=== PATIENT | female | born 1930 | race Caucasian/White ===

== ENCOUNTER → 2016-03-11 | Outpatient (CLI) | payer MEDICARE ==
[2016-03-11 11:45] LABS: Blood Urea Nitrogen 17 mg/dL (7-17); Non-African American GFR(MDRD) >60 (>60 ml/min/1.73 sqM)
--- NOTE | 2016-03-11 12:47 | CT ---
EXAMINATION TYPE: CT urogram wo/w con DATE OF EXAM: 03/11/2016 12:27 PM COMPARISON: 09/21/2011 HISTORY: 85-year-old female with frequent UTIs, Possible renal stone CT DLP: 850.6 mGycm Automated exposure control for dose reduction was used. TECHNIQUE: Contiguous axial scanning of the abdomen and pelvis without and with IV Contrast, patient injected with 100 ml mL of Omnipaque 300. Delayed images through the kidneys and long delays through the kidneys and bladder were obtained. Coronal/sagittal reconstructions. 3-D reconstructions generate d on a dedicated independent workstation. FINDINGS: Heart is normal size without pericardial effusion. Mitral annular calcifications are noted. Some stra ndy atelectasis or scarring at the left base and right middle lobe. No pleural effusion. No focal liver lesion. No biliary ductal dilatation. Portal venous system is patent Gallbladder, adrenal glands, spleen, and mildly atrophic pancreas show no gross abnormality. There is moderate atherosclerotic calcification throughout the abdominal aorta without aneurysm. Scattered nonenlarged mesenteric lymph nodes are present. No mesenteric or retroperitoneal lymphadeno mariusz. There is moderate overall stool burden and sigmoid diverticulosis but no pericolonic inflammatory alisha nge. Prominent fluid-filled small bowel loops throughout the mid and lower abdomen and possible encrustati on of the colon. There is known nephrolithiasis. Tiny subcentimeter hypodensity lateral lower pole right kidney is unc hanged and too small for accurate CT characterization, likely a cyst. There is symmetric uptake and excretion of contrast by both kidneys without any suspicious renal lesi on.. The distal third right ureter is nonopacified and not evaluated. Left ureter appears satisfactory. No suspicious filling defects seen within the collecting systems on either side. Tiny fatty umbilical hernia No suspicious filling defect along the dependent portion of the bladder which is opacified with layer ing contrast. Uterus surgically absent. Some bulging convexity of the levator ani musculature suggests pelvic floor relaxation. No abnormal fluid collection in the pelvis. Bones: Multilevel disc/endplate degenerative change within the lumbar spine with at least moderate sp inal canal stenoses that is at L2-L3. No osseous destructive process. IMPRESSION: 1. NO NEPHROLITHIASIS, SUSPICIOUS RENAL LESION, OR OBSTRUCTIVE UROPATHY. 2. NONOPACIFICATION OF THE DISTAL THIRD SEGMENT OF THE RIGHT URETER PRECLUDING ITS EVALUATION. OTHERW ISE, NO SPECIFIC ABNORMALITY OF THE COLLECTING SYSTEMS OR REMAINDER OF THE URETERS. 3. APPARENT ENCRUSTATION OF THE COLON AND PROMINENT FLUID-FILLED SMALL BOWEL LOOPS THROUGHOUT. QUESTI ONABLE CLINICAL SIGNIFICANCE. CORRELATE FOR THE POSSIBILITY OF HYPERSECRETION AND COLONIC WALL FAT CO ATING FROM AN UNDERLYING MALABSORPTIVE DISEASE. 4. SIGMOID DIVERTICULOSIS AND MILD PELVIC FLOOR RELAXATION.
== END | disposition home or self-care (01) ==
LOC: RADCTMAIN 11:13
PROVIDERS: ATTEND Urology
DX: K57.30 Diverticulosis of large intestine without perforation or abscess without bleeding (principal); N20.0 Calculus of kidney
CPT/HCPCS: 82565; 84520; 74178; 36415; 74400; Q9967

== ENCOUNTER → 2017-02-01 | Outpatient (CLI) | payer MEDICARE ==
--- NOTE | 2017-02-01 21:43 | US ---
EXAMINATION TYPE: US kidneys/renal and bladder DATE OF EXAM: 02/01/2017 COMPARISON: CT urogram March 11, 2016. Renal ultrasound February 04, 2016. CLINICAL HISTORY: N39.0 UTI. UTI this year and last year, h/o renal stones EXAM MEASUREMENTS: Right Kidney: 8.4 x 4.2 x 5.0 cm Left Kidney: 11.3 x 3.5 x 5.2 cm any nephrolithiasis seen previously was too small to see by ultrasound Right Kidney: smaller in size Left Kidney: wnl Bladder: wnl Bilateral Jets seen: only right There is no evidence for hydronephrosis at this point in time. No nephrolithiasis is seen. No raffaele s are identified. The urinary bladder is anechoic. Bilateral ureteral jets are not seen. IMPRESSION: No hydronephrosis is evident bilaterally. Asymmetric diminished size to right kidney is felt technica l as renal sizes are fairly symmetric and within normal limits on comparison CT.
== END | disposition home or self-care (01) ==
LOC: RADUSWWP 15:42
PROVIDERS: ATTEND Urology
DX: N39.0 Urinary tract infection, site not specified (principal)
CPT/HCPCS: 76770

== ENCOUNTER → 2017-03-31 | Outpatient (CLI) | payer MEDICARE ==
--- NOTE | 2017-04-01 10:52 | MM ---
Reason for exam: screening (asymptomatic). Last mammogram was performed 1 year and 2 months ago. History: Patient is postmenopausal. Benign excisional biopsy of the right breast, 1973. Took estrogen for 10 years beginning at age 50. Took progesterone for 4 years beginning at age 50. Physical Findings: A clinical breast exam by your physician is recommended on an annual basis and results should be correlated with mammographic findings. MG 3D Screening Mammo W/Cad Bilateral CC and MLO view(s) were taken. Prior study comparison: February 04, 2016, bilateral MG 3d screening mammo w/cad. February 11, 2015, right breast MG 3d work up w/cad RT. The breast tissue is heterogeneously dense. This may lower the sensitivity of mammography. Finding: There are typically benign vascular, round calcifications. There is no discrete abnormality. ASSESSMENT: Benign, BI-RAD 2 RECOMMENDATION: Routine screening mammogram of both breasts in 1 year.
== END | disposition home or self-care (01) ==
LOC: RADMAMWWP 13:02
PROVIDERS: ATTEND Obstetrics & Gynecology
DX: Z12.31 Encounter for screening mammogram for malignant neoplasm of breast (principal)
CPT/HCPCS: 77063; 77067

== ENCOUNTER → 2018-04-20 | Outpatient (CLI) | payer MEDICARE ==
--- NOTE | 2018-04-24 08:08 | MM ---
Reason for exam: screening (asymptomatic). Last mammogram was performed 1 year and 1 month ago. History: Patient is postmenopausal. Benign excisional biopsy of the right breast, 1973. Took estrogen for 10 years beginning at age 50. Took progesterone for 4 years beginning at age 50. Physical Findings: A clinical breast exam by your physician is recommended on an annual basis and results should be correlated with mammographic findings. MG 3D Screening Mammo W/Cad Bilateral CC and MLO view(s) were taken. Prior study comparison: March 31, 2017, bilateral MG 3d screening mammo w/cad. February 04, 2016, bilateral MG 3d screening mammo w/cad. The breast tissue is heterogeneously dense. This may lower the sensitivity of mammography. No significant changes when compared with prior studies. ASSESSMENT: Benign, BI-RAD 2 RECOMMENDATION: Routine screening mammogram of both breasts in 1 year.
== END | disposition home or self-care (01) ==
LOC: RADMAMWWP 11:16
PROVIDERS: ATTEND Obstetrics & Gynecology
DX: Z12.31 Encounter for screening mammogram for malignant neoplasm of breast (principal)
CPT/HCPCS: 77063; 77067

== ENCOUNTER → 2019-11-15 | Outpatient (CLI) | payer MEDICARE ==
--- NOTE | 2019-11-15 12:08 | CT ---
EXAMINATION TYPE: CT brain wo/w con DATE OF EXAM: 11/15/2019 COMPARISON: None HISTORY: syncope CT DLP: 1891.0 mGycm Automated exposure control for dose reduction was used. CONTRAST: CT scan of the head is performed without and with IV Contrast, patient injected with 100 mL of Isovue 300. FINDINGS: Mild generalized degenerative change. Diffuse areas of low attenuation in the white matter are nonspe cific. No acute hemorrhage or mass effect. No midline shift. Intracranial atherosclerotic changes are noted. Low-attenuation within the internal capsule region bilaterally greater on the left noted. Postcontrast imaging demonstrates no enhancing mass. There is asymmetric prominence of the right dist al ICA and carotid siphon. This could be on the basis of fusiform aneurysm as a somewhat asymmetric. Calvarium intact. Craniocervical junction maintained. Sella turcica has a normal appearance. Incident al note made of pineal gland calcification. IMPRESSION: 1. 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 No acute hemorrhage or mass effect. 2. 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
== END | disposition home or self-care (01) ==
LOC: RADCTMAIN 10:35
PROVIDERS: ATTEND Family Medicine
DX: I67.82 Cerebral ischemia (principal); R90.82 White matter disease, unspecified
CPT/HCPCS: 70470; 36415; Q9967

== ENCOUNTER → 2019-11-22 | Outpatient (CLI) | payer MEDICARE ==
--- NOTE | 2019-11-22 15:21 | US ---
EXAMINATION TYPE: US carotid duplex BILAT DATE OF EXAM: 11/22/2019 COMPARISON: NONE CLINICAL HISTORY: R55 syncope. Syncope EXAM MEASUREMENTS: RIGHT: Peak Systolic Velocity (PSV) cm/sec ----- Right CCA: 49.6 ----- Right ICA: 74.6 ----- Right ECA: 61.6 ICA/CCA ratio: 1.5 RIGHT: End Diastole cm/sec ----- Right CCA: 9.0 ----- Right ICA: 19.3 ----- Right ECA: 0.0 LEFT: Peak Systolic Velocity (PSV) cm/sec ----- Left CCA: 114.5 ----- Left ICA: 91.3 ----- Left ECA: 95.6 ICA/CCA ratio: 0.8 LEFT: End Diastole cm/sec ----- Left CCA: 20.6 ----- Left ICA: 10.0 ----- Left ECA: 0.0 VERTEBRALS (direction of flow): Right Vertebral: Antegrade Left Vertebral: Antegrade Rhythm: Normal No elevated velocities, no significant stenosis. IMPRESSION: No evidence for hemodynamically significant stenosis. Criteria for Assigning % of Stenosis / Diameter reduction (Estimation based on the indirect measurements of the internal carotid artery velocities (ICA PSV). 1. Normal (no stenosis)=ICA PSV < 125 cm/s: ratio < 2.0: ICA EDV<40 cm/s. 2. Less than 50% stenosis=ICA PSV < 125 cm/s: ratio < 2.0: ICA EDV<40 cm/s. 3. 50 to 69% stenosis=ICA PSV of 125 to 230 cm/s: ration 2.0 ? 4.0: ICA EDV 40-100 cm/s. 4. Greater than 70% stenosis to near occlusion= ICA PSV > 230 cm/s: ratio > 4.0: ICA EDV > 100 cm/s. 5. Near occlusion= ICA PSV velocities may be low or undetectable: variable ratio and ICA EDV. 6. Total occlusion=unable to detect flow.
== END | disposition home or self-care (01) ==
LOC: RADUSWWP 14:46
PROVIDERS: ATTEND Family Medicine
DX: R55 Syncope and collapse (principal)
CPT/HCPCS: 82565; 84520; 93880

== ENCOUNTER → 2020-01-11 | Outpatient (CLI) | payer MEDICARE | END | disposition home or self-care (01) | LOC: LABWHC1 08:44 | PROVIDERS: ATTEND Psychiatry & Neurology Neurology | DX: R55 Syncope and collapse (principal) | CPT/HCPCS: 36415; 80177 ==

== ENCOUNTER → 2020-04-29 | Outpatient (CLI) | payer MEDICARE | END | disposition home or self-care (01) | LOC: LABWHC1 10:09 | PROVIDERS: ATTEND Psychiatry & Neurology Neurology | DX: R55 Syncope and collapse (principal) | CPT/HCPCS: 36415; 80177 ==

== ENCOUNTER → 2020-06-20 | Outpatient (CLI) | payer MEDICARE | END | disposition home or self-care (01) | LOC: LABWHC1 09:49 | PROVIDERS: ATTEND Psychiatry & Neurology Neurology | DX: R55 Syncope and collapse (principal); R94.01 Abnormal electroencephalogram [EEG]; Z79.899 Other long term (current) drug therapy | CPT/HCPCS: 36415; 80177 ==

== ENCOUNTER → 2020-08-14 | Outpatient (CLI) | payer MEDICARE ==
[2020-08-15 05:31] LABS: African American GFR (CKD) 42.4 (60.0-200.0); Albumin 4.4 g/dL (3.80-4.90); Albumin/Globulin Ratio 1.91 (1.60-3.17); BUN/Creat Ratio 16.92 Ratio (12.00-20.00); Calcium 9.8 mg/dL (8.7-10.3); Globulin 2.3 g/dL (1.6-3.3); Non-African American GFR(CKD) 36.6 (60.0-200.0); Potassium 4.3 mmol/L (3.5-5.5); Total Bilirubin 0.5 mg/dL (0.2-1.2); Total Protein 6.7 g/dL (6.2-8.2)
== END | disposition home or self-care (01) ==
LOC: LABWHC1 15:50
PROVIDERS: ATTEND Internal Medicine Interventional Cardiology
DX: I10 Essential (primary) hypertension (principal)
CPT/HCPCS: 36415; 80053

== ENCOUNTER → 2020-11-13 | Outpatient (CLI) | payer MEDICARE ==
--- NOTE | 2020-11-13 15:54 | CT ---
EXAMINATION TYPE: CT abdomen pelvis wo con DATE OF EXAM: 11/13/2020 HISTORY: Hematuria, frequent urination and UTIs. CT DLP: 352.2 mGycm. Automated Exposure Control for Dose Reduction was Utilized. TECHNIQUE: CT abdomen and pelvis without oral or IV contrast COMPARISON: CT urogram March 11, 2016 FINDINGS: Within the limitations of a non-contrast study, the following observations are made. LUNG BASES: Mild to moderate parenchymal fibrotic changes in the bases left greater than right. LIVER/GB: No significant abnormality is appreciated. PANCREAS: No significant abnormality is seen. SPLEEN: No significant abnormality is seen. ADRENALS: No significant abnormality is seen. KIDNEYS: Some cortical thinning in both kidneys is redemonstrated. No renal stones or hydronephrosis seen bilaterally. Bladder has some lobulated peripheral margins without intraluminal mass or calculus BOWEL: A few diverticula in the sigmoid colon of the left pelvis. No CT evidence for acute diverticul itis. No suspicious small or large bowel dilatation. GENITAL ORGANS: Uterus surgically absent or markedly atrophic. LYMPH NODES: No greater than 1cm abdominal or pelvic lymph nodes are appreciated. OSSEOUS STRUCTURES: Levoconvex scoliotic curvature centered at L2-L3 level redemonstrated. Multilevel [id number] spurring and disc space narrowing and vacuum disc phenomenon redemonstrated. Mult ilevel facet arthropathy greatest in the lower lumbar spine redemonstrated. Moderate to severe narrow ing and moderate spurring right greater than left hip joints. OTHER: Moderate calcified plaque of the aorta extends into branch vessels. IMPRESSION: No renal stones or hydronephrosis is seen bilaterally. No new or acute finding identified on noncontrast CT to account for patient's symptoms.
== END | disposition home or self-care (01) ==
LOC: RADCTMAIN 13:19
PROVIDERS: ATTEND Urology
DX: N39.0 Urinary tract infection, site not specified (principal); R31.1 Benign essential microscopic hematuria
CPT/HCPCS: 74176

== ENCOUNTER → 2020-12-03 | Outpatient (CLI) | payer MEDICARE ==
--- NOTE | 2020-12-03 14:28 | BD ---
EXAMINATION TYPE: Axial Bone Density DATE OF EXAM: 12/03/2020 COMPARISON: NONE CLINICAL HISTORY: Height: 5 FT 5 IN Weight: 157 FRAX RISK QUESTIONS: Alcohol (3 or more units per day): NO Family History (Parent hip fracture): NO Glucocorticoids (More than 3mos): NO (Ex: prednisone, prednisolone, methylprednisolone, dexamethasone, and hydrocortisone). History of Fracture in Adulthood: NO Secondary Osteoporosis: 1. Type 1 Diabetes: NO 2. Hyperthyroidism: NO 3. Menopause before 45: NO 4. Malnutrition: NO 5. Chronic liver disease: NO Rheumatoid Arthritis: NO Current Tobacco Use: NO RISK FACTORS HISTORY OF: Surgery to Spine/Hip(right/left)/Wrist (right/left): LUMBAR SURG X2 When: 1973 AND 2002 Family History of Osteoporosis: NO Active: YES Diet low in dairy products/other sources of calcium: NO Postmenopausal woman: TOTAL HYST AGE 54 Take estrogen and/or progesterone medications: TOOK HRT AFTER HYST FOR NOT TO LONG Lost more than 2 inches in height since high school: YES MEDICATIONS: Additional Medications: EYE MEDS , BLADDER MED ,SEIZURE MEDS, LISINOPRIL, Additional History: EXAM MEASUREMENTS: Bone mineral density about the R hip (g/cm2): 1.207 Bone mineral density about the L hip (g/cm2): 1.053 T Score values are as follows: -----R Neck: 1.2 -----L Neck: 0.1 -----R Total: 1.2 -----L Total: 0.3 Bone mineral density has: DECREASED -0.3 % since study of: 2014 Bone mineral density about the L Wrist (g/cm2): 0.642 T Score values are as follows: -----Dist. R+U: 0.2 -----Prox. R+U: -0.8 -----Radius total: -0.5 FIRST TIME WRIST HAS BEEN DONE IMPRESSION: No evidence for osteoporosis or osteopenia. NOTE: T-SCORE=SD OF THE YOUNG ADULT MEAN.
== END | disposition home or self-care (01) ==
LOC: RADBDWWP 12:31
PROVIDERS: ATTEND Obstetrics & Gynecology
DX: Z12.31 Encounter for screening mammogram for malignant neoplasm of breast (principal); N95.1 Menopausal and female climacteric states; M85.88 Other specified disorders of bone density and structure, other site
CPT/HCPCS: 77080

== ENCOUNTER → 2021-02-13 | Outpatient (CLI) | payer MEDICARE ==
--- NOTE | 2021-02-13 13:22 | CT ---
EXAMINATION TYPE: CT iac w con DATE OF EXAM: 02/13/2021 COMPARISON: None HISTORY: hearing loss CT DLP: 150 mGycm Automated exposure control for dose reduction was used. CONTRAST: CT scan of the IACs is performed with IV Contrast, patient injected with 100 mL of Isovue 300. FINDINGS: The the right temporal bone and auditory structures are normal. There is no bone destructio n. The mastoid air cells and middle ear cavities are well aerated. The ossicular chain and scutum are intact and there is no thickening of the eardrum. The external artery territory canal is normal as w ell. The internal auditory canal is unremarkable. On the left, there is fluid within the mastoid air cells and middle ear cavity. Mucosal thickening or fluid in the external auditory canal is well. The ossicular chain and scutum are intact. Internal au ditory canal and internal ear structures are normal.. There is no bony obstruction of the left tempor al bone . IMPRESSION: Abnormal left temporal bone with fluid in the mastoid air cells, middle ear cavity and ex ternal ear cavity as described above. There is no bone destruction of the temporal bone, ossicular ch ain or scutum.
== END | disposition home or self-care (01) ==
LOC: RADCTMAIN 11:58
PROVIDERS: ATTEND Otolaryngology
DX: H91.90 Unspecified hearing loss, unspecified ear (principal); H70.90 Unspecified mastoiditis, unspecified ear; H60.90 Unspecified otitis externa, unspecified ear
CPT/HCPCS: 82565; 84520; 70481; 36415; Q9967

== ENCOUNTER → 2021-04-14 | Outpatient (CLI) | payer MEDICARE ==
--- NOTE | 2021-04-14 11:22 | CT ---
EXAMINATION TYPE: CT iac wo con DATE OF EXAM: 04/14/2021 COMPARISON: Prior CT IAC February 13, [address] brain November 15, 2019. HISTORY: Cholesteatoma. CT DLP: 142.7 mGycm. Automated Exposure Control for Dose Reduction was Utilized. TECHNIQUE: CT scan of internal auditory canal is performed without contrast, thin cut axial images ar e obtained, coronal reformatted images are also reviewed. FINDINGS: Persistent irregular soft tissue density filling the left extraocular canal particularly de ep aspect. Persistent near complete opacification of the left mastoid air cells. Persistent abnormal soft tissue density surrounding the left middle ear ossicles similar to prior. Os sicles remain normal shape. There is increased soft tissue extends into the deeper aspect on current study. Scutum is preserved. Right-sided middle ear structures remain within normal limits. The cochlea and the semicircular canals are symmetric and unremarkable. Superior semicircular canal shows satisfactory bony overgrowth bilaterally Vestibular aqueduct and internal carotid canal appear unremarkable. Temporomandibular joints are maintained bilaterally. Suspected 1.0 cm left frontal osteoma otherwise paranasal sinuses are grossly clear. Visualized portion brain parenchyma is felt within normal limits . IMPRESSION: Persistent increased fluid in both mastoid air cells concerning for mastoiditis, correlat e clinically. Persistent abnormal soft tissue deep left external auditory canal and middle ear cavity worrisome for infectious process or cholesteatoma. Findings slightly progressed from most recent pr ior. No new bony destruction is evident.
== END | disposition home or self-care (01) ==
LOC: RADCTMAIN 10:34
PROVIDERS: ATTEND Otolaryngology Otology & Neurotology
DX: H71.02 Cholesteatoma of attic, left ear (principal)
CPT/HCPCS: 70480

== ENCOUNTER → 2021-08-19 | Outpatient (CLI) | payer MEDICARE | END | disposition home or self-care (01) | LOC: LABWHC1 10:33 | PROVIDERS: ATTEND Psychiatry & Neurology Neurology | DX: G40.909 Epilepsy, unspecified, not intractable, without status epilepticus (principal) | CPT/HCPCS: 36415; 80177 ==